=== PATIENT | male | born 1935 | race Caucasian/White ===

== ENCOUNTER 2018-08-22 18:15 | Emergency (ER) | END 2018-08-22 19:57 | disposition home or self-care (01) ==

== ENCOUNTER 2019-05-21 15:23 | Emergency (ER) | payer MEDICARE ==
[~2019-05-21] VITALS: Ht 162.6 cm; Wt 72.7 kg
[~2019-05-21 15:23] MED LIST: TRAM50TA2 PO
[2019-05-21 15:33] VITALS: BP 95/55; PULSE 78; RESP 20; Ht 162.6 cm; Wt 72.7 kg
[2019-05-21] MEDS ORDERED: TAMS-14 PO (16:54)
--- NOTE | 2019-05-21 16:56 | ERD ---
ER Documentation Chief Complaint Chief Complaint Initial c/o frequent urination x1 week. BS: 277 HPI 83-year-old male presents with complaints of frequent urination for last week. Denies dysuria, fevers, vomiting, abdominal pain. He has a history of diabetes and takes Glucophage. Blood sugar is 277. ROS All systems reviewed and are negative except as per history of present illness. Medications Home Meds Active Scripts Tamsulosin Hcl* (Flomax*) 0.4 Mg Cap.er.24h, 0.4 MG PO QPM, #30 CAP Prov:RENAE SPARROW MD 05/21/19 Tramadol HCl (Tramadol HCl) 50 Mg Tablet, 50 MG PO Q6 PRN for PAIN, #20 TAB Prov:MARIA R BOTELLO MD 08/22/18 Allergies Allergies: Coded Allergies: No Known Allergy (Unverified , 08/22/18) PMhx/Soc History of Surgery: No Anesthesia Reaction: No Hx Neurological Disorder: No Hx Respiratory Disorders: No Hx Cardiac Disorders: Yes (HTN, HLD) Hx Psychiatric Problems: No Hx Miscellaneous Medical Probl: Yes (DM, prostate) Hx Alcohol Use: No Hx Substance Use: No Hx Tobacco Use: No FmHx Family History: No diabetes, No coronary disease, No other Physical Exam Vitals Vital Signs Date Temp Pulse Resp B/P (MAP) Pulse Ox O2 O2 Flow FiO2 Time Delivery Rate 05/21/19 98.2 78 20 95/55 (68) 95 15:33 Physical Exam Const: No acute distress Head: Atraumatic Eyes: Normal Conjunctiva ENT: Normal External Ears, Nose and Mouth. Neck: Full range of motion. No meningismus. Resp: Clear to auscultation bilaterally Cardio: Regular rate and rhythm, no murmurs Abd: Soft, non tender, non distended. Normal bowel sounds Skin: No petechiae or rashes Back: No midline or flank tenderness Ext: No cyanosis, or edema Neur: Awake and alert Psych: Normal Mood and Affect Results 24 hrs Laboratory Tests Test 05/21/19 15:29 05/21/19 16:05 Bedside Glucose 277 mg/dL Urine Color YELLOW Urine Clarity CLEAR Urine pH 5.0 Urine Specific [place] 1.012 Urine Ketones NEGATIVE mg/dL Urine Nitrite NEGATIVE mg/dL Urine Bilirubin NEGATIVE mg/dL Urine Urobilinogen NEGATIVE mg/dL Urine Leukocyte Esterase NEGATIVE Tree/ul Urine Hemoglobin NEGATIVE mg/dL Urine Glucose NEGATIVE mg/dL Urine Total Protein NEGATIVE mg/dl Procedures/MDM Urine is negative. Smoking patient presents with complaints of frequent urination without signs of UTI, abdominal pain, DKA, additional concerning signs or symptoms. We will be discharged home with further observation at home and primary care follow-up. The patient was stable with no new complaints during the ER course. Clinically, there is no current evidence to suggest meningitis, sepsis, acute abdomen, pneumonia, stroke, acute coronary syndrome, pulmonary embolism, aortic dissection or any other emergent condition appearing to require further evaluation or hospitalization. Patient counseled regarding my diagnostic impression and care plan. Prior to discharge all questions answered. Pt agrees with treatment plan and understands strict return precautions. Pt is instructed to follow up with primary care provider within 24-48 hours. Precautionary instructions provided including instructions to return to the ER if not improving or for any worsening or changing symptoms or concerns. Disclaimer: Inadvertent spelling and grammatical errors are likely due to EHR/dictation software use and do not reflect on the overall quality of patient care. Also, please note that the electronic time recorded on this note does not necessarily reflect the actual time of the patient encounter. Departure Diagnosis: Primary Impression: Genitourinary symptoms Condition: Stable Patient Instructions: Symptoms With Uncertain Cause Referrals: NO PRIMARY,CARE PHYSICIAN (PCP) Additional Instructions: orina normal. posiblemente es del prostato y vamos a tratar. Cheque otro vez con hicks doctor primario en el proximo schroeder or regresa para mas o nueva simptomas. RENAE SPARROW MD May 21, 2019 16:56
== END 2019-05-21 17:30 | disposition home or self-care (01) ==
LOC: FTE 15:23
DX: R39.89 Other symptoms and signs involving the genitourinary system (principal); I10 Essential (primary) hypertension; E11.9 Type 2 diabetes mellitus without complications; Z79.84 Long term (current) use of oral hypoglycemic drugs
CPT/HCPCS: 81003; 82962; 99283